=== PATIENT | male | born 1965 | race Caucasian/White ===

== ENCOUNTER → 2024-04-06 13:24 | Outpatient (REF) | payer BC, SELFPAY | LOC: DHSLP 13:24 | PROVIDERS: ATTENDING PHYSICIAN Family Medicine | DX: G47.33 Obstructive sleep apnea (adult) (pediatric) (principal) | CPT/HCPCS: 95800 ==

== ENCOUNTER 2024-04-28 06:11 | Day surgery (SDC) | payer BC, SELFPAY ==
[2024-04-08 10:57] VITALS: BMI 31.4
[2024-04-28] VITALS (10 sets, daily range): BP systolic 115–129; BP diastolic 70–88; BMI 31.4
[2024-04-28] MEDS: TYLENOL 1000 MG PO (06:28)
--- NOTE | 2024-04-28 08:52 | OR.RPT ---
Operative Report
Operative Report
Primary Surgeon: Rodrick
Assisting: Lucinda CURRAN
Pre-op Diagnosis: Umbilical hernia
Post-op Diagnosis: Incarcerated umbilical hernia
Procedure Performed: Robot assisted laparoscopic repair of umbilical hernia (rTAPP)
Anesthesia Type: GETA + TAP block
Specimen / Cultures: None
Estimated Blood Loss: 5cc
Complications: None immediate
Operative Findings: 1cm defect with incarcerated omentum; 12cm x 12cm bard soft mesh
Date of surgery: 04/28/24
Indications:� This 59M developed a symptomatic umbilical hernia. Robot assisted laparoscopic repair was planned.
Description of procedure:� The patient was taken to the operating room and positioned into supine position. The patient�s abdomen was prepped and draped in standard sterile fashion. A time-out was completed verifying correct patient, procedure,
site, positioning, and implants and special equipment prior to beginning this procedure.� The hernia was partially manually reduced after induction. A stab incision was made in the left upper quadrant, a Veress needle was inserted and proper
position was confirmed by aspiration and saline drop test. Following this, pneumoperitoneum was created with insufflation of carbon dioxide to 12 mmHg. Then a 8mm robotic trocar was inserted at the left anterior axillary line at the level of the
umbilicus. The laparoscope was inserted and no injuries were identified in the area. Under direct visualization, the initial trocar was exposed and two 8mm trocars were placed a hand's breadth above and below the initial trocar under direct
visualization.
Attention was turned to the defect. The peritoneum was incised several cm superior to the defect and a peritoneal flap was developed in transverse and caudad directions using blunt and sharp dissection and judicious electrocautery. The defect was
identified and measured as above. Incarcerated fatty contents were reduced. The defect was closed with 0 PDS stratafix suture. A 12cm x 12cm bard soft mesh was passed into the abdomen. It was placed against the underside of the abdominal wall and
secured in place with 2-0 vicryl sutures at all four corners and fdc along each side. The flap was closed over the mesh and secured with 2-0 monocryl stratafix suture. A 14g angiocath was used to decompress the preperitoneal space. The flap
sealed and suctioned nicely up to the abdominal wall. The mesh did not fold nor curl. A transversus abdominis plane block was then performed under laparoscopic vision with marcaine/decadron.
After ensuring adequate hemostasis, the trocars were removed and the pneumoperitoneum allowed to escape. The trocar incisions were closed at the skin level using 4-0 monocryl and topical skin adhesive. All counts were correct and the patient
tolerated the procedure well and was taken to the postanesthesia care unit in stable condition.
[2024-04-28] MEDS: DILAUDID 0.25 MG IV (09:18)
[2024-04-28] MEDS: ROXICODONE 5 MG PO (10:06)
== END 2024-04-28 10:45 | disposition home or self-care (01) ==
LOC: SDS 06:11
PROVIDERS: ATTENDING PHYSICIAN Surgery; FAMILY PHYSICIAN Family Medicine
DX: K42.0 Umbilical hernia with obstruction, without gangrene (principal)
CPT/HCPCS: 49592; 36415; 93005; C1781

== ENCOUNTER → 2024-10-20 06:02 | Outpatient (REF) | payer BC, SELFPAY | LOC: HWCARD 06:02 | PROVIDERS: ATTENDING PHYSICIAN Pain Medicine Interventional Pain Medicine; FAMILY PHYSICIAN Family Medicine | DX: Z01.818 Encounter for other preprocedural examination (principal) | CPT/HCPCS: 93005 ==

== ENCOUNTER 2025-02-22 10:03 | Emergency (ER) | payer BC, SELFPAY ==
[2025-02-22 10:09] VITALS: BP 159/88
[2025-02-22 10:16] VITALS: BMI 32.6
[2025-02-22] MEDS: RABAVERT RABIES VACC W-DILUENT 2.5 UNIT IM (12:10)
--- NOTE | 2025-02-22 12:15 | ED.SKININJ ---
HPI-Injury
General
Chief Complaint: Bite
Source: patient
Exam Limitations: none
Time Seen by Provider: 02/22/25 10:26
Nursing documentation reviewed up to this point in time: agreed with
History of Present Illness-Injury
Is this injury a work related problem?: No
Is pt an associate of [facility]?: No
Initial Injury comments:
60-year-old male presenting to the emergency department today with concerns of a dog bite to his right index finger that occurred from a dog that was on a leash with his otr owner operator while walking past his place of appointment. He claims that he was
petting the dog and the dog bit his finger. The otr owner operator left and was not able to get any information about the vaccination status or the address of the dog for monitoring. The patient is unsure of when his last tetanus shot was. He denies any
history of immunosuppression. The dog was otherwise acting normally.
Past History
Past History
ED Past Medical History: Hypercholesterolemia and NIDDM; Negative CAD or HTN
ED Past Surgical History: Orthopedic (Hip)
Social History
Tobacco: Non-smoker
Alcohol: Occasional
Drug: None
Personal:
Living: with family
Employment: Employed
Family History
Family History: Negative CAD
Review of Systems
Review of Systems
Allergies reviewed?: Yes
All Other Systems: ROS reviewed and negative except as documented in HPI and ROS
Phy Exam
Physical Exam
Physical Exam:
GENERAL: Alert , in no apparent distress
EYE: pupils equal and reactive
NECK: Supple, no significant adenopathy.
ENT: o/p clr, mmm.
CARDIAC: Regular rate and rhythm .
LUNGS: Clear breath sounds bilaterally, no acute respiratory distress, no wheezes/rales/rhonchi
ABDOMEN: Soft, without focal tenderness, no r/g, no cvat
NEUROLOGICAL: Alert and oriented, no focal neuro deficits
SKIN: Of the nailbed distally no foreign body seen. Warm and dry, skin intact.
MUSCULOSKELETAL: No edema, well perfused.
PSYCH: Normal and appropriate interaction.
Injury to the distal right index finger on the radial aspect
Course
Orders/Labs/Results
Orders:
Orders
02/22/25 10:47
Amoxicillin 875 mg/Clav 125 mg [Augmentin 875 mg/125 mg] 1 tablet PO NOW STA
CR Hand - Right Min 3 Views Urgent
Comment:
Reason For Exam: dog bite index
02/22/25 10:48
Tetanus/Diphth/Acelpertussis [Adacel] 0.5 ml IM .ONCE ONE
02/22/25 11:17
Rabies Immune Globulin/Pf [HyperRAB] 2,100 unit IM NOW STA
02/22/25 11:30
Rabies Vaccine (Pcec)/Pf [Rabavert Rabies Vacc W-Diluent] 2.5 unit IM .ONCE ONE
Vital Signs
Initial and Last Documented VS:
Initial Vital Signs
Temp Pulse Resp BP Pulse Ox
98.0 F 74 16 159/88 98
02/22/25 10:09 02/22/25 10:02/22/25 10:02/22/25 10:02/22/25 10:09
Last Documented Vital Signs
Temp Pulse Resp BP Pulse Ox
98.0 F 74 16 159/88 98
02/22/25 10:09 02/22/25 10:09 02/22/25 10:02/22/25 10:02/22/25 10:09
Procedures
Laceration Closure
Right Distal Radial Second Finger:
Status of Wound: clean and bite
Size of Wound in cm: 1.5
Description of Wound Edges: ragged
Preparation: cleaned with saline
Anesthesia: Digital-Regional (Bupivacaine)
Revision/Debridement: routine- no revision and irrigate-direct pressure
Wound exploration: explored to base- no FB and no tendon involvement
Type of Closure: single layer closure
Skin Closure Material: 5-0 vicryl
Number of sutures: 1
Additional information:
Loose approximating stitch as to not increase risk of infection
MDM/Problems Addressed
MDM/Problems Addressed:
60-year-old male presenting to the emergency department after dog bite to the right index finger prior to arrival. He is not sure when his last tetanus shot was. He was given a tetanus shot here. He also opted to get the rabies vaccination as he
is not sure of where the dog is or the dog's vaccination status. Otherwise he was given Augmentin and the wound was thoroughly cleaned. The distal finger was a significant flap there was a loose approximating stitch placed but was not pulled tight
to not increase risk of infection. This was discussed thoroughly with the patient who demonstrated understanding. Return precautions given.
*Pulse Oximetry
SaO2: 98
Oxygen Mode of Delivery: Room air
Patient hypoxic: no (98)
*Critical Care Note
Total Time (30-74mins, 75-104mins- exclusive of procedures): Not Applicable
ED Attending Note
-
Portions of this chart may have been created with voice recognition software.� Occasional wrong word or��sound alike� substitutions may have occurred due to the inherent limitations of voice recognition software.
Discharge Plan
Departure
Patient Disposition: Home (Routine Discharge)
Date of Disposition: 02/22/25
Time of Disposition: 12:19
Patient with high blood pressure during this ER visit?: No
Condition: Good
Covid-19: Not Applicable
Discharge Problem:
Dog bite of finger
Instructions: Animal Bites (DC), Rabies
Prescriptions:
New
amoxicillin-pot clavulanate 875-125 mg tablet
1 tab PO BID 3 Days Qty: 6 0RF
RabAvert (PF) 2.5 unit Suspension For Reconstitution
1 ml IM . DIRECTED Qty: 3 0RF
Rx Instructions:
See Rabies Vaccine Post Exposure Prophylaxis Instruction Sheet for Dosing Instructions
No Action
atorvastatin 20 MG tablet
20 mg PO QPM
aspirin 81 MG tablet,delayed release (DR/EC)
81 mg PO Q48H
ibuprofen 200 MG tablet
400 - 600 mg PO PRN PRN (Reason: pain)
multivitamin Tablet
1 tab PO DAILY
cyanocobalamin (vitamin B-12) [Vitamin B-12] 1,000 mcg Tablet
1,000 mcg PO DAILY
diphenhydramine HCl 25 mg Tablet
12.5 mg PO HS PRN (Reason: sleep/itching)
cholecalciferol (vitamin D3) [Vitamin D3] 50 mcg (2,000 unit) Capsule
50 mcg PO DAILY
Fish Oil
1 cap PO DAILY
oxycodone 5 mg tablet
5 - 10 mg PO Q4HPRN PRN (Reason: moderate to severe pain) Qty: 12 0RF
Referrals:
Enrrique Jackson MD [Family Provider, Family Practice]
Stand Alone Forms: Rabies Vaccine Post Exp Dosing
Activity Restrictions/Additional Instructions:
You came to the emergency department today after dog bite. This was cleaned and closed with 1 loose approximating stitch. Please give the area clean covered and return for any evidence of infection. Please also take additional rabies vaccines at
the infusion center at day 3 7 and 14. Return for any worsening, new or concerning symptoms.
Interventions
Interventions:
*Risk Screen - Suicide Last Done: 02/22/25 10:09
*General Assessment Last Done: 02/22/25 10:16
*Neglect/Abuse Screening Last Done: 02/22/25 10:09
*ED- Fall Risk Assessment Last Done: 02/22/25 10:16
*ED COVID-19 Vaccine History Last Done: 02/22/25 10:16
ED-Skin Assessment Last Done: 02/22/25 10:16
Discharge Date and Time
Print Language: FRENCH
[2025-02-22] MEDS: AUGMENTIN 875 MG/125 MG 1 TABLET PO (12:19)
[2025-02-22] MEDS: ADACEL 0.5 ML IM (12:19)
[2025-02-22 12:26] VITALS: BP 135/92
== END 2025-02-22 12:31 | disposition home or self-care (01) ==
LOC: EMR 10:03
PROVIDERS: EMERGENCY PHYSICIAN Emergency Medicine; FAMILY PHYSICIAN Family Medicine
DX: S61.210A Laceration without foreign body of right index finger without damage to nail, initial encounter (principal); W54.0XXA Bitten by dog, initial encounter; Z20.3 Contact with and (suspected) exposure to rabies; Z23 Encounter for immunization; E78.00 Pure hypercholesterolemia, unspecified; E11.9 Type 2 diabetes mellitus without complications; J45.909 Unspecified asthma, uncomplicated; G47.30 Sleep apnea, unspecified; M19.90 Unspecified osteoarthritis, unspecified site; Z96.643 Presence of artificial hip joint, bilateral
CPT/HCPCS: 99284; 12001; 90471; 96372; 73130; 90375; 90675; 90715

== ENCOUNTER 2025-03-08 15:06 | Outpatient (RCR) | payer OTHER, SELFPAY ==
[2025-02-25 14:36] VITALS: BP 138/79
[2025-02-25] MEDS: RABAVERT RABIES VACC W-DILUENT 2.5 UNIT IM (14:44)
[2025-03-01 15:15] VITALS: BP 129/81
[2025-03-01] MEDS: RABAVERT RABIES VACC W-DILUENT 2.5 UNIT IM (15:20)
[2025-03-08 15:22] VITALS: BP 134/75
[2025-03-08] MEDS: RABAVERT RABIES VACC W-DILUENT 2.5 UNIT IM (15:25)
== END 2025-03-16 23:59 | disposition home or self-care (01) ==
LOC: OID 15:06
PROVIDERS: ATTENDING PHYSICIAN Physician Assistant; FAMILY PHYSICIAN Family Medicine
DX: Z20.3 Contact with and (suspected) exposure to rabies (principal); Z23 Encounter for immunization
CPT/HCPCS: 90471; 90675